=== PATIENT | male | born 1990 | race African-American/Black ===

== ENCOUNTER 2017-06-06 11:26 | Inpatient (IN) | payer MEDICAID ==
[~2017-06-06] VITALS: Ht 175.3 cm; Wt 68.0 kg
[2017-06-06] MEDS ORDERED: SODIUM CHLORIDE 0.9% 1,000 ML IV ONE (11:54)
[2017-06-06] MEDS ORDERED: LORAZEPAM 2MG/ML CPJ IV STA (11:54)
[2017-06-06] MEDS ORDERED: FOLIC ACID 1 MG, THIAMINE HCL 100 MG, MVI, ADULT NO.1 10 ML in DEXTROSE 5% WATER 1,000 ML IV ONE ×4 (12:00)
[2017-06-06 12:17] LABS: BASOPHILS % 0.7 % (0.0-2.0); EOSINOPHILS % 0.2 % (0.0-5.0); HEMOGLOBIN. 13.7 g/dL (14.0-18.0); LYMPHOCYTES % 12.4 % (20.0-50.0); MEAN CORPUSCULAR HEMOGLOBIN 31.6 pg (28.0-32.0); MEAN PLATELET VOLUME 7.4 fl (7.4-10.4); MONOCYTES % 7.8 % (2.0-8.0); NEUTROPHILS % 78.9 % (40.0-76.0); PLATELET 286 x1000/uL (130-400); RED BLOOD CELL COUNT 4.34 mill/uL (4.7-6.1); RED CELL DISTRIBUTION WIDTH 14.2 % (11.6-14.6)
[2017-06-06 12:28] LABS: PROTHROMBIN TIME 10.7 sec (9.4-11.6)
[2017-06-06 12:34] LABS: CARBON DIOXIDE 23 mEq/L (21-32); CHLORIDE 105 mEq/L (98-107); CREATINE KINASE 248 IU/L (39-308); ETHANOL BLOOD 26 mg/dL; TROPONIN I 0.03 ng/mL (0.00-0.04)
[2017-06-06] MEDS ORDERED: SODIUM CHLORIDE 0.9% 1000ML BAG (SEPSIS BOLUS) IV ONE (12:45)
[2017-06-06] MEDS ORDERED: SODIUM CHLORIDE 0.9% 250 ML IV SCH (13:00)
[2017-06-06 16:20] VITALS: BP 125/69
[2017-06-06] MEDS ORDERED: ACETAMINOPHEN 650MG/20.3ML UDC GT PRN (17:00)
[2017-06-06] MEDS ORDERED: MAGNESIUM/ALUMINUM HYDROXIDE/SIMETHICONE 30ML UDC PO PRN (17:00)
[2017-06-06] MEDS ORDERED: ONDANSETRON HCL 4MG/2ML VIAL IV PRN (17:00)
[2017-06-06] MEDS ORDERED: IPRATROPIUM/ALBUTEROL 0.5-3(2.5)MG/3ML NEB INH PRN (17:00)
[2017-06-06] MEDS ORDERED: NA PHOS,M-B/NA PHOS,DI-BA ENEMA 118ML PR PRN (17:00)
[2017-06-06] MEDS ORDERED: CLONIDINE 0.1MG TABLET PO PRN (17:00)
[2017-06-06] MEDS ORDERED: DOCUSATE SODIUM 100MG CAPSULE PO PRN (17:00)
[2017-06-06] MEDS ORDERED: ACETAMINOPHEN 325MG TABLET PO PRN (17:00)
[2017-06-06] MEDS ORDERED: HYDROCODONE/ACETAMINOPHEN 5/325MG TABLET PO PRN (17:00)
[2017-06-06] MEDS ORDERED: ACETAMINOPHEN 650MG SUPP PR PRN (17:00)
[2017-06-06] MEDS ORDERED: GUAIFENESIN 200MG/10ML SUGAR FREE UDC PO PRN (17:00)
[2017-06-06] MEDS ORDERED: LORAZEPAM 2MG/ML CPJ IV PRN (17:00)
[2017-06-06] MEDS ORDERED: DIPHENHYDRAMINE 50MG/ML VIAL IV PRN (17:00)
[2017-06-06] MEDS: PANTOPRAZOLE SODIUM 40 MG/VIAL IV SCH (18:56)
[2017-06-06] MEDS: ENOXAPARIN 40MG/0.4ML SYR SUBCUT SCH ×2 (18:57→18:59)
[2017-06-06 19:43] LABS: HEMATOCRIT 42.1 % (42.0-52.0); HEMOGLOBIN 14.2 g/dL (14.0-18.0)
[2017-06-06 20:00] VITALS: BP 133/89
[2017-06-06] MEDS: IPRATROPIUM/ALBUTEROL 0.5-3(2.5)MG/3ML NEB INH SCH (20:25)
[2017-06-06 21:06] LABS: CLARITY URINE CLEAR (CLEAR); COLOR URINE ORANGE (YELLOW); GLUCOSE URINE NEGATIVE (NEGATIVE); KETONES URINE 2+ (NEGATIVE); LEUKOCYTE ESTERASE URINE TRACE (NEGATIVE); NITRITE URINE NEGATIVE (NEGATIVE); OCCULT BLOOD URINE NEGATIVE (NEGATIVE); PROTEIN URINE TRACE (NEGATIVE)
[2017-06-06] MEDS: CHLORDIAZEPOXIDE 25MG CAPSULE PO SCH (21:08)
[2017-06-06] MEDS: SODIUM CHLORIDE 0.9% INJ 3ML FLUSH IVF SCH (21:09)
[2017-06-06 21:23] LABS: *AMPHETAMINES SCREEN URINE NEGATIVE (NEGATIVE); *BARBITURATES SCREEN URINE NEGATIVE (NEGATIVE); *BENZODIAZEPINES SCREEN URINE PRESUMTIVE POSITIVE (NEGATIVE); *COCAINE SCREEN URINE NEGATIVE (NEGATIVE); CANNABINOID URINE SCREEN PRESUMTIVE POSITIVE (NEGATIVE); METHADONE URINE SCREEN NEGATIVE (NEGATIVE); OPIATES URINE SCREEN NEGATIVE (NEGATIVE); PHENCYCLIDINE URINE SCREEN NEGATIVE (NEGATIVE)
[2017-06-06 23:04] LABS: CREATINE KINASE 187 IU/L (39-308); TROPONIN I < 0.02 ng/mL (0.00-0.04)
[2017-06-07] VITALS: BP 131/86
[2017-06-07] MEDS: IPRATROPIUM/ALBUTEROL 0.5-3(2.5)MG/3ML NEB INH SCH ×2 (00:42→08:03)
[2017-06-07 04:00] VITALS: BP 125/70
[2017-06-07] MEDS: CHLORDIAZEPOXIDE 25MG CAPSULE PO SCH ×2 (06:08→13:07)
[2017-06-07] MEDS: SODIUM CHLORIDE 0.9% INJ 3ML FLUSH IVF SCH ×2 (06:08→13:07)
[2017-06-07 08:00] VITALS: BP 123/80
[2017-06-07] MEDS ORDERED: FOLIC ACID 1MG TABLET PO SCH (09:00)
[2017-06-07] MEDS ORDERED: THIAMINE HCL 100MG TABLET PO SCH (09:00)
[2017-06-07] MEDS: PANTOPRAZOLE SODIUM 40 MG/VIAL IV SCH (09:36)
[2017-06-07] MEDS: ENOXAPARIN 40MG/0.4ML SYR SUBCUT SCH (09:36)
[2017-06-07 09:42] LABS: BASOPHILS % 0.7 % (0.0-2.0); EOSINOPHILS % 0.2 % (0.0-5.0); HEMATOCRIT. 40.3 % (42.0-52.0); HEMOGLOBIN. 13.6 g/dL (14.0-18.0); LYMPHOCYTES % 25.8 % (20.0-50.0); MEAN CORPUSCULAR HEMOGLOBIN 31.7 pg (28.0-32.0); MEAN CORPUSCULAR VOLUME 94.1 fL (80.0-94.0); MEAN PLATELET VOLUME 8.6 fl (7.4-10.4); MONOCYTES % 11.6 % (2.0-8.0); NEUTROPHILS % 61.7 % (40.0-76.0); PLATELET 232 x1000/uL (130-400); RED BLOOD CELL COUNT 4.28 mill/uL (4.7-6.1)
[2017-06-07 10:14] LABS: CARBON DIOXIDE 22 mEq/L (21-32); CHLORIDE 101 mEq/L (98-107); CREATINE KINASE 129 IU/L (39-308); HDL CHOLESTEROL 110 mg/dL (40-59); LDL CHOLESTEROL 40 mg/dL (5-100); TROPONIN I 0.02 ng/mL (0.00-0.04)
[2017-06-07] MEDS ORDERED: POTASSIUM CHLORIDE 20MEQ TABLET SR PO SCH (11:45)
[2017-06-07 12:00] VITALS: BP 131/77
[2017-06-07 15:15] LABS: HEMATOCRIT 38.9 % (42.0-52.0); HEMOGLOBIN 13.3 g/dL (14.0-18.0)
[2017-06-07 16:00] VITALS: BP 144/99
[2017-06-07 20:00] VITALS: BP 128/87
== END 2017-06-07 20:20 | disposition left against medical advice (07) | DRG 770 ==
LOC: ER 11:26 → 8WST 13:58 → ENRESERV 14:59
PROVIDERS: ADMIT Family Medicine; ATTEND Family Medicine
DX: F10.239 Alcohol dependence with withdrawal, unspecified (principal); E86.0 Dehydration; F17.200 Nicotine dependence, unspecified, uncomplicated; Z53.21 Procedure and treatment not carried out due to patient leaving prior to being seen by health care provider; F10.129 Alcohol abuse with intoxication, unspecified
CPT/HCPCS: 36415; 71010; 80053; 80061; 80305; 81001; 82550; 83605; 83690; 84484; 85014; 85018; 85025; 85610; 87040; 87086; 93005; 94640; 96365; 96366; 96375; 99285; C9113; G0482; J1650; J2060; J3411; J3490; J7030; J7050; J7070; J7620